=== PATIENT | male | born 2005 | race Hispanic/Latino ===

== ENCOUNTER 2025-02-05 16:26 | Emergency (ER) | payer MEDICAID ==
[~2025-02-05] VITALS: Ht 157.5 cm; Wt 46.7 kg
--- NOTE | 2025-02-05 17:03 | ERN ---
ED Note History of Present Illness Stated Complaint: GROWTH TO RIGHT EARLOBE Chief Complaint: Earache Time Seen by MD: 16:33 Dictation: PATIENT IS A 19-YEAR-OLD MALE HERE WITH HIS MOTHER WITH COMPLAINTS OF A SWOLLEN CYST-LIKE LESION TO THE POSTERIOR RIGHT EAR ONSET WAS TWO WEEKS PRIOR TO ARRIVAL. HE STATES HE NOTICED IT WITH SMALL LIKE A PIMPLE HE WITH SQUEEZING IT WHEN IT GOT LARGER. NO FEVER NO CHILLS NO NAUSEA VOMITING. THERE WAS NO EAR PAIN NO MASTOID TENDERNESS BILATERALLY. Allergies: Coded Allergies: No Known Drug Allergies (Unverified Allergy, Unknown, 02/05/25) Past Medical History Past Medical History: No Pertinent History Surgical History: Other Surgical History Other: RT EYE SURGERY RN Note Reviewed/Agreed w/PFSH: Yes Review of System Dictation CONSTITUTIONAL: NEGATIVE EXCEPT FOR HPI HEAD/FACE: NEGATIVE EXCEPT FOR HPI EENT: NEGATIVE EXCEPT FOR HPI RIGHT POSTERIOR EAR LESIONS RESPIRATORY: NEGATIVE EXCEPT FOR HPI GASTROINTESTINAL/ABDOMINAL: NEGATIVE EXCEPT FOR HPI GENITOURINARY: NEGATIVE EXCEPT FOR HPI MUSCULOSKELETAL: NEGATIVE EXCEPT FOR HPI INTEGUMENTARY: NEGATIVE EXCEPT FOR HPI NEUROLOGICAL/PSYCH: NEGATIVE EXCEPT FOR HPI HEMATOLOGIC/LYMPHATIC: NEGATIVE EXCEPT FOR HPI ALL SYSTEMS NEGATIVE, EXCEPT NOTED ABOVE. 13 POINT REVIEW OF SYSTEMS ASSESSED AND ALL NEGATIVE EXCEPT FOR ABOVE. Initial Vital Sign VS Vital Signs Date Time Temp Pulse Resp B/P (MAP) Pulse Ox O2 Delivery O2 Flow Rate FiO2 02/05/25 16:28 98.1 114 16 144/81 100 Room Air Physical Exam Dictation VITAL SIGNS REVIEWED GENERAL APPEARANCE: ALERT, ORIENTED X 3, ACUTE DISTRESS, WELL DEVELOPED, NOURISHED. HEAD AND FACE: NON-TRAUMATIC. EYES: PERRL, PINK CONJUNCTIVAS, EYELID NO TRAUMA, ANTERIOR CHAMBER WITH ARCUS SENILIS. EARS: PINNAS INTACT AND NO SIGNS OF LOBULAR LESION TO RIGHT POSTERIOR EAR. IT IS MOBILE NO ERYTHEMA NO TENDERNESS NOSE: NO DISCHARGE, NO BLEEDING. OROPHARYNX: MOUTH NORMAL, TONGUE PINK, PHARYNX CLEAR,NO ERYTHEMA, TONSILS NO EXUDATES, NO ABSCESSES NOTED, MUCOUS MEMBRANE MOIST NECK: SUPPLE, NON-TENDER, NO THYROMEGALY, NO MASSES, NO JVD, NO BRUITS BREAST:DEFERRED CHEST:NO TENDERNESS, NO CREPITUS, NO PARADOXICAL MOVEMENT, NO RETRACTIONS LUNGS:CLEAR, WELL-VENTILATED, SYMMETRIC, NO RALES, NO WHEEZING, NO RHONCHI, NO STRIDOR, GOOD BREATH SOUNDS BILATERALLY HEART: REGULAR RATE, REGULAR RHYTHM, NO MURMUR, NO GALLOPS VASCULAR: NO PERIPHERAL EDEMA, ABDOMEN: SOFT, POSITIVE BOWEL SOUNDS, NONDISTENDED, NO GUARDING, NONTENDER, NO REBOUND, NO MASSES NO HEPATOMEGALY, NO SPLENOMEGALY, NO MAN'S SIGN, NO HERNIAS. RECTAL: DEFERRED GENITAL: DEFERRED NEUROLOGICAL: NORMAL SPEECH, MOTOR FUNCTION INTACT, SENSORY FUNCTION INTACT MUSCULOSKELETAL: NECK NONTENDER, FULL RANGE OF MOTION, BACK NONTENDER, FULL RANGE OF MOTION, EXTREMITIES: NONTENDER, FULL RANGE OF MOTION SKIN: COLOR PINK, DRY, NO TURGOR, NO RASH, NO LACERATIONS, NO ABRASIONS, NO CONTUSIONS. LYMPHATIC: DEFERRED Results (Laboratory/Radiology) Labs Reviewed?: Yes ED Course ED Course Orders Procedure Category Date Status Time Ibuprofen 600 Mg PHA 02/05/25 Complete Tablet (Motrin) 17:30 Clindamycin 150mg Cap PHA 02/05/25 Complete (Cleocin 150mg Cap 17:30 Current Medications Medications (Trade) Dose Ordered Sig/Rachell Route PRN Reason Start Time Stop Time Status Last Admin Dose Admin Clindamycin HCl (Cleocin 150mg Cap) 600 mg ONCE ONCE PO 02/05/25 17:30 02/05/25 17:31 DC 02/05/25 17:19 Ibuprofen (moTRIN) 600 mg ONCE ONCE PO 02/05/25 17:30 02/05/25 17:31 DC 02/05/25 17:19 Vital Signs Date Time Temp Pulse Resp B/P (MAP) Pulse Ox O2 Delivery O2 Flow Rate FiO2 02/05/25 16:28 98.1 114 16 144/81 100 Room Air 1755/PATIENT IS STRONGLY ADVISED TO STOP SQUEEZING THE LESION. HE WILL BE REFERRED TO DR. CEJA DAY /SURGERY FOR EVALUATION AND TREATMENT Medical Decision Making MDM MEDICAL DECISION-MAKING BASED ON EXAMINATION TREATMENT EMPIRICALLY FOR POSSIBLE POSTERIOR RIGHT EAR ABSCESS. PATIENT PLACED ON CLINDAMYCIN REFERRED TO SURGERY DX & DISP Disposition: Discharge Departure Impression: Primary Impression: Dermoid cyst of right ear Condition: Stable Scripts Ibuprofen (Ibuprofen) 600 Mg Tablet 600 MG PO Q6H PRN for PAIN, #30 TAB Prov: XAVIER GARY GENERAL COUNSELOR 02/05/25 Clindamycin HCl (Clindamycin HCl) 300 Mg Capsule 1 CAP PO QID for 10 Days, #40 CAP 0 Refills Prov: XAVIER GARY 02/05/25 Additional Instructions: FOLLOW-UP WITH PRIMARY CARE PROVIDER IN 1 TO 2 DAYS. TAKE MEDICATIONS DIRECTED HERE IN THE EMERGENCY ROOM. OKAY TO CONTINUE HOME MEDICATIONS UNLESS OTHERWISE DISCUSSED DURING YOUR VISIT IN THE EMERGENCY ROOM TODAY. RETURN TO YOUR NEAREST EMERGENCY ROOM IF SYMPTOMS WORSEN OR IF THERE IS NO IMPROVEMENT. CALL 911 IF YOU NEED IMMEDIATE ASSISTANCE. TAKE TYLENOL OR MOTRIN [id number] NEEDED AND IF NO CONTRAINDICATIONS ARE PRESENT. INCREASE ORAL HYDRATION. A WOUND CULTURE OR URINE CULTURE WAS ORDERED HERE IN THE EMERGENCY ROOM DEPARTMENT PLEASE FOLLOW-UP WITH PRIMARY CARE PROVIDER AND ADVISE THEM TO GET REPEAT PORTS FROM OUR FACILITY. IF YOU HAD ANY CHARLINE WRAP/SPLINTS JOHANN T WERE APPLIED HERE, PLEASE DO NOT REMOVE THEM UNTIL YOU SEE YOUR PRIMARY CARE OR SPECIALTY. TAKE ANTIBIOTICS DIRECTED UNTIL GONE. POLICE DO NOT SQUEEZE OR STICK LESION BEHIND YOUR EAR. CALL SURGEON FOR AN APPOINTMENT IN THE NEXT 2-3 DAYS. Referrals: SELF,REFERRAL (PCP) KINGS YODER MD Time of Disposition: 17:59 I have reviewed the case, and I agree with, Diagnosis and Plan XAVIER GARY Feb 05, 2025 17:03
[2025-02-05 17:16] VITALS: BP 144/81; PULSE 114; RESP 16; TEMP 98.1; O2SAT 100
[2025-02-05] MEDS: CLINDAMYCIN 150 MG CAP PO ONE (17:19)
[2025-02-05] MEDS ORDERED: CLIN-141 PO (18:00)
[2025-02-05] MEDS ORDERED: IBUP-1492 PO (18:00)
--- NOTE | 2025-02-05 18:25 | NUR ---
PT LEFT PRIOR TO DISCHARGE PACKET BEING PRINT AND WITHOUT PRINTED PRESCRIPTION.
--- NOTE | 2025-02-05 18:32 | NUR ---
PHONE MESSAGE WAS LEFT REGARDING PRISCRIPTION BEING LEFT IN TRIAGE IF WISHES TO RETRIEVE THEM.
== END 2025-02-05 18:27 | disposition home or self-care (01) ==
LOC: EDH 16:26
DX: D23.21 Other benign neoplasm of skin of right ear and external auricular canal (principal)
CPT/HCPCS: 99283